=== PATIENT | female | born 1985 | race Caucasian/White ===

== ENCOUNTER → 2017-12-20 16:02 | Outpatient (REF) | payer MEDICAID, SELFPAY ==
--- NOTE | 2017-12-20 15:00 | CER_PTH ---
PATIENT: NIMA BERKOWITZ LOC: [facility] U#:[id number] AGE/SX: 39/F ROOM: RE12/20/[address]: Lor Rivera : 1985 BED: DIS: SPEC #: [id number] RECD: 12/20/17 17:24 STATUS: SARTHAK REMike #: [id number] VENTURA: 12/20/17 15:[address]: Lor Rivera DEPT: Surgical Specimen RECD BY: Susanne Green ENTERED: 12/20/17 17:26 SP TYPE: CER OTHR DR: Iris Rabago Tissues: 1 - CERVICAL LEEP/LOOP Procedures: GROSS AND MICRO LEVEL 5 Comments: [id number]
== END ==
LOC: LBN 16:02
PROVIDERS: PCP Family Medicine; Visit Provider Obstetrics & Gynecology Gynecology
DX: N72 Inflammatory disease of cervix uteri (principal); Z87.410 Personal history of cervical dysplasia
CPT/HCPCS: 88307

== ENCOUNTER 2019-10-17 01:56 | Outpatient (CLI) | payer MEDICAID, SELFPAY ==
--- NOTE | 2019-10-17 | DI.US_ITS ---
EXAM: US OB 1ST TRIMESTER CLINICAL HISTORY: SURVEY, Z34.91, FAX TO [phone] TECHNIQUE: Ultrasound performed using standard protocol. COMPARISON: No exams were available for comparison FINDINGS: Ob ultrasound was performed utilizing 1st trimester protocol. There is single intrauterine gestation al sac with mean sac size measurements consistent with gestational age 5 weeks 3 days and EDC of 05/26. A yolk sac is visualized but no pole or cardiac activity is observed at this time. There is an apparent corpus luteum cyst left measuring roughly 1 cm in diameter right ovarian simple cyst measuring 17 millimeters in diameter noted.. No free fluid identified in pelvis. IMPRESSION: Five week 3 day intrauterine gestation by mean sac size measurements. Viability not confirmed at thi s time. Follow-up ultrasound suggested in 2 weeks. DATA REPOSITORY:
== END 2019-10-17 02:16 ==
PROVIDERS: PCP Family Medicine; Visit Provider Family Medicine
DX: Z34.91 Encounter for supervision of normal pregnancy, unspecified, first trimester (principal); Z3A.01 Less than 8 weeks gestation of pregnancy; N83.12 Corpus luteum cyst of left ovary; N83.291 Other ovarian cyst, right side
CPT/HCPCS: 76801

== ENCOUNTER 2020-05-13 13:51 | Inpatient (IN) | payer MEDICAID, SELFPAY ==
[2020-05-13] VITALS (15 sets, daily range): BP systolic 89–139; BP diastolic 45–78; PULSE 56–96; RESP 16–20; TEMP 35.5–36.8; O2SAT 99–100
--- NOTE | 2020-05-13 13:59 | W.PM.OBHPL1 ---
Date of service: 05/13/20 Time of Service: 14:00 Assessment and Plan Assessment and plan (1) History of delivery affecting : Status: Acute Assessment and plan: Patient had a previous section after 3 vaginal deliveries. She refuses attempted vaginal after section and declines trial of labor. She is in early labor today at 35 weeks and 2 days by early ultrasound with confirmatory last menstrual period. She does understand the risk, but alternatives of section including risk of infection, bleeding, injury to surrounding organs, risk of anesthesia, risk of thromboembolism and potential risk for recommend. She also understands that she is late and baby could have issues with both breathing, feeding, sugar control, jaundice. (2) : Status: Acute (3) Tobacco use: Status: Acute Assessment and plan: Patient states that she will no longer be smoking smoking as of today. OB-HPI Labor/Delivery History of Present Illness Reason for Visit: REPEAT C/S Chief Complaint: Uterine Contractions. FLOWER Calculator Estimated Delivery Date Method Current WG Current Estimate 06/15/20 Ultrasound #1 35w 2d Other Estimates 06/04/20 LMP (Certain) 36w 6d History of Present Narrative: Patient seen and personally for evaluation after having nonstress test in her primary care office today. She was having some abdominal pain and burning. Baby's been moving and active. At that nonstress test she did have a variable deceleration to the 90s covered nicely with moderate variability. She is seen here in the center for evaluation with contractions approximately 2 to 3 minutes and a category 1 heart rate tracing. Cervical exam previously was approximate 1 cm here on the center was 2 cm 80% with cervical change noted. Plan will be for repeat section today at 35 weeks and 2 days by early ultrasound consistent with last menstrual period. She does understand the risk benefits and alternatives occluding risk of infection, bleeding, injury to surrounding organs, potential need for hysterectomy. She will have preoperative antibiotics and DVT prophylaxis. Pediatrics will be involved in light of fact that patient is late she does understand the possibility for respiratory distress, poor feeding, hyperbilirubinemia. Review of Systems All systems reviewed & are unremarkable except as noted in HPI and below Constitutional Constitutional: Reports as per HPI, Denies fever(s), Denies night sweats and Denies weight loss Eyes Eyes: Reports system reviewed and no additional complaints, except as documented Cardiovascular Cardiovascular: Reports system reviewed and no additional complaints, except as documented Respiratory Respiratory: Reports system reviewed and no additional complaints, except as documented Gastrointestinal Gastrointestinal: Reports system reviewed and no additional complaints, except as documented Genitourinary Genitourinary: Reports system reviewed and no additional complaints, except as documented and Reports pelvic pain Neurologic Neurologic: Reports system reviewed and no additional complaints, except as documented Endocrine Endocrine: Reports system reviewed and no additional complaints, except as documented Allergic/Immunologic Allergic/Immunologic: Reports system reviewed and no additional complaints, except as documented PFSH Medical History Abnormal Pap smear of cervix 2016. HGIL. Neg ECC. Rx with cryo. 2017. HGSIL with . Colpo inconclusive. 11/2017 Colop bx Contraception Declines any hormonal contraception. Declines tubal sterilization or LARC. States she does OK without. FHx: hemochromatosis Pt is a gene carrier. Pt's father has hemochromotosis. 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 Need clarification: does she need prophylaxis in 3rd trimester. History of alcohol abuse History of depression FLOWER 06/15/20 by 1st trimester u/s. care at [facility]. PTSD (post-traumatic stress disorder) Tobacco abuse Surgical History section (03/22/17) Arrest dilation and NRFHR. Che Huang. FH/SG History of delivery affecting Declines JOSR unless has advanced cervical dilation on arrival at [facility]. Family History Mother Hyperlipidemia Father No problems noted. Social History Smoking/Tobacco Use Status: Current every day Smoking risk assessment performed?: Yes Do you feel safe in your relationship?: Yes History History 5 Para 4 Hx # Term Pregnancies Multiple births Hx # Pregnancies Ectopic pregnancies AB induced Hx Number of Living Children AB spontaneous Past Pregnancies Del. Date GA/Weeks # Outcome Route Wgt Sex Labor Lgth Anesthesia Location Prov Complic Unknown 40 No Successful vaginal 6 lb 13 oz Female 5 Unknown 37 No Successful vaginal 5 lb 4 oz Male 14 Unknown 39 No Successful vaginal 7 lb 6 oz Male 12 Unknown 38 No Successful 7 lb 1 oz Male 36 Delivery Date: 2007 Lor Rivera Delivery Date: 2009 Lor Rivera Delivery Date: 2015 Lor Rivera Delivery Date: 2016. HR tracing non-reassuring 7cm. Lor Rivera Meds Home Medications and Allergies Allergies Allergy/AdvReac Type Severity Reaction Status Date / Time azithromycin Allergy Intermediate Nausea Unverified 03/20/17 21:59 Exam Physical Exam Vital signs: Pulse BP 96 H 135/73 05/13/20 13:45 05/13/20 13:45 Detailed Labor and Delivery Exam Perla Score: Cervical Points Exam 0 1 2 3 Dilation Closed 1-2cm 3-4 cm 5-6cm Effacement 0-30% 40-50% 60-70% 80% Consistency Firm Medium Soft Station -3 -2 -1,0 +1,+2 Position Posterior Mid Anterior Fetus A Heart Rate Baseline: 140 Monitor Accelerations: 15 X 15 Monitor Decelerations: None Variability: Moderate (6-25 BPM) Presentation: Cephalic Categories: Category I Est. Weight: 6 lb Est. Weight: 6 HEENT Exam HEENT Exam: Normal Neck Exam Neck Exam: Normal Respiratory Exam Respiratory Exam: Normal Cardiovascular Exam Cardiovascular Exam: Normal Abdominal Exam Abdominal Exam: Normal Detailed Exam Patient deferred: external exam External: Present normal urethra appearance Detailed Extremities Exam Extremities: Absent cyanosis, clubbing, edema, calf tenderness and Gem's sign Skin Exam Skin Exam: Normal Neurological Exam Neurological Exam: Normal Additional findings Additional findings: Cervix is 2 cm, 80%, soft, posterior, 0 station Risk Assessment Risk for Shoulder Dystocia Historical/Initial OB: NEGATIVE FOR: Pelvic Abnormality, Pre- BMI>30, Previous Shoulder Dystocia or Previous Macrosomia 40 Weeks: NEGATIVE FOR: EFW> 4500 gms, Maternal Weight Gain >40lb or Post Dates Increased Risk?: No Delivery Plan @ 40 wks: section Risk for Pre-Eclampsia Yes, if one or more: NEGATIVE FOR: Hx Pre-E/Gest HTN, Chronic HTN, Multiple Gestation, Pre-gestational DM, Renal Disease, Systemic Lupus or APA Syndrome Yes, if 2 or more: POSITIVE FOR: Previous IUGR; NEGATIVE FOR: Nulliparity, Age>= 35 yrs, >10yr btwn pregnancies, BMI>30, ethinicty or Mother/Sister w/ Pre-E Risk for Post- Hemorrhage Initial: POSITIVE FOR: Grand Multiparity; NEGATIVE FOR: Multiple Gestation, Previous PPH or Known Clotting Deficiency Date/Initials: KJ Risks Reviewed Risks Reviewed Upon Admission: Yes
[2020-05-13] MEDS: Sodium Citrate 30 ML CUP PO (14:35)
[2020-05-13] MEDS: ceFAZolin 2 GM/50 ML BAG IVPB (14:38)
[2020-05-13] MEDS: Normal Saline Flush 10 ML SYR IVP ×2 (14:39→19:29)
[2020-05-13] MEDS: Lactated Ringers 1,000 ML 200 ML IV ×2 (14:40→16:51)
[2020-05-13 14:41] LABS: HCT 35.2 % (36.0-46.0); HGB 12.7 g/dL (11.2-15.7); MCH 32.2 pg (27.0-33.0); MCHC 36.1 % (32.0-36.0); MCV 89.3 fL (80-95); MPV 9.2 fL (8.0-11.0); Platelet Count 316 10^3/uL (130-400); RBC 3.94 10^6/uL (3.93-5.22); RDW 12.1 % (11.7-14.6); RDW-SD 39.3 fL; WBC 14.06 10^3/uL (4.4-10.8)
[2020-05-13] MEDS: AZITHROMYCIN 500 MG in Normal Saline 250 ML 250 MG IVPB (15:26)
[2020-05-13] MEDS: Bupivacaine 0.25% Pres-Free 30 ML VIAL (16:01)
--- NOTE | 2020-05-13 16:24 | W.PM.OBCSECT ---
Date of service: 05/13/20 Time of Service: 16:24 Operative Note Operative Note Delivery Method: Unscheduled Category: Urgent DATE OF PROCEDURE: 05/13/20 PRE-OP DIAGNOSES: at 35-2/7 weeks, prior , declines labor, active labor POST-OP DIAGNOSES: same PROCEDURE: Repeat low transverse section SURGEON: Lindsey Khalil Machine Cell Tuber: Catherine Hays Anesthesia: local and spinal Estimated blood loss (mL): 600 Pathology: none sent Complications: None Patient was transported to: floor Patient's condition: stable Indications: at 35-2/7 weeks, active labor, prior section, declined trial of labor Findings: Delivery of a viable male infant. Normal tubes, ovaries, uterus Procedure Description: Patient is a 34-year-old female who has had care with primary care at [facility]. She had previously 3 vaginal deliveries followed by a section. She was counseled on options of trial of labor versus repeat section. She opted for section. She was sent to the center today after having increasing abdominal pain and noted to have a deceleration on nonstress testing at the office. She was sent for further evaluation. Upon her arrival to the center she was paula approximately every 3 minutes which were uncomfortable. She had made cervical change from 1 cm in the office to 2 cm and 80% on the floor. She had reassuring maternal status with a category 1 heart rate tracing at that point. The risks, benefits, alternatives of section including risk of infection, bleeding, injury to surrounding organs, risk of thromboembolism, risk of anesthesia, potential risk for hysterectomy were explained to the patient in full informed consent was obtained. She was taken the operating suite with an IV running where she placed in the seated position and spinal anesthesia administered tested and found to be adequate. She was placed in the dorsal supine position with leftward tilt and prepped and draped in usual sterile fashion. Sun catheter had been inserted for continuous bladder drainage. Half percent Marcaine with Exparel were infiltrated into her previous incisional area. A Pfannenstiel skin was made with a scalpel and extended to the fascia. Fascial incision was nicked in the midline and fascial incision extended laterally. The fascia was then split in the rectus muscles rectus muscle split in the midline and the peritoneum identified tented up and entered sharply. The peritoneal incision was then extended superiorly and inferiorly and the bladder blade was inserted. The vesicouterine peritoneum was identified tented up and with meticulous sharp dissection the bladder flap was created. Bladder blade was reinserted and a low transverse uterine incision was made with the scalpel and extended bluntly laterally. Membranes were ruptured for clear fluid. vertex was found to be in the occiput transverse position with the left hand near to the left cheek. The vertex was delivered atraumatically. Shoulders followed with ease. Three-vessel cord was noted clamped x2 and cut and the infant handed off to the waiting pediatric team. At this point cord blood gases cord blood sample were both obtained and the placenta was manually expressed from the uterus. The uterus was then exteriorized and cleared of all clot and debris. Uterine incision was closed using 0 Monocryl suture in a 2 layer closure first running locked, second layer imbricated. The incision was found to be hemostatic and uterus was returned to the abdomen. The abdomen was then irrigated copious amounts of normal saline and uterine incision inspected found to be hemostatic. At this point the fascial incision was closed using 0 Vicryl suture in a running fashion subcutaneous tissue. Copious amounts of normal saline subcu space was closed with 3-0 Vicryl suture in a simple interrupted fashion and the skin edge reapproximated with 4-0 Monocryl in a subcuticular fashion. Steri-Strips were placed as was a sterile dressing. At the completion of procedure patient had Sun catheter draining clear yellow urine. Findings: Delivered viable male weight and Apgars to follow. Normal tubes ovaries and uterus EBL: 600 cc Complications: None apparent Fluid: 1 L crystalloid per anesthesia
[2020-05-13] MEDS: Oxytocin/Normal Saline 30 UNITS/500 ML BAG 95 UNITS IV (16:50)
[2020-05-13] MEDS: NALBUPHINE 5 MG in Normal Saline 50 ML 100 MG IVPB (19:27)
[2020-05-13] MEDS: Ketorolac 30 MG/ML VIAL IVP (19:30)
--- NOTE | 2020-05-13 20:05 | OBPPV_ITS ---
Date of service: 05/13/20 Time of Service: 20:05 Assessment and Plan Assessment and plan (1) Tobacco use: Status: Acute (2) delivery delivered: Status: Acute Assessment and plan: Doing well post csection today for labor with planned c section. Being transferred to [facility] to be with baby who needs higher level of care for RDS. Subjective Subjective Patient comments: No complaints, Pain well controlled and Tolerating diet Narrative: Mom is doing well with some nausea and itching post . Vital signs stable. Spinal wearing off slowly. However, baby is being transferred to [facility] due to RDS and we will be transporting mom as well to be with her baby. Spoke with Dr Vallejo at [facility] who accepted the transfer. Mom is intending to breastfeed and has been expressing colostrum for baby as well as pumping. Exam Physical Exam Vital signs: Temp Pulse Resp BP Pulse Ox 36.6 C 82 18 139/69 100 05/13/20 18:30 05/13/20 19:54 05/13/20 18:18 05/13/20 19:54 05/13/20 17:50 Constitutional Constitutional: no acute distress Fundal Exam Fundus: Below Umbilicus (at umbilicus) and Firm Results Hemoglobin/Hematocrit: Hgb 12.7 g/dL (11.2-15.7) 05/13/20 14:30 Hct 35.2 % (36.0-46.0) L 05/13/20 14:30 Abnormal Lab Findings: Abnormal Labs 05/13/20 14:30 WBC 14.06 H Hct 35.2 L MCHC 36.1 H
[2020-05-14 01:01] LABS: COVID-19 RT-PCR UVMMC Result Negative (Negative)
== END 2020-05-13 21:35 | disposition short-term general hospital (02) | DRG 788 ==
LOC: BCD 13:55 → OBS 13:56
PROVIDERS: Admitting Provider Obstetrics & Gynecology; PCP Family Medicine; Visit Provider Obstetrics & Gynecology
PROC: 10D00Z1 Extraction of Products of Conception, Low, Open Approach (ICD-10-PCS; CPT 59514; principal; 2020-05-13 14:30)
DX: O60.14X0 Preterm labor third trimester with preterm delivery third trimester, not applicable or unspecified (principal); O99.334 Smoking (tobacco) complicating childbirth; Z37.0 Single live birth; O34.211 Maternal care for low transverse scar from previous cesarean delivery; Z3A.35 35 weeks gestation of pregnancy; F17.210 Nicotine dependence, cigarettes, uncomplicated; N85.8 Other specified noninflammatory disorders of uterus
CPT/HCPCS: 59514; 85027; 86850; 86900; 86901; U0003; J0131; J0456; J0690; J1100; J1885; J2405; J2590; J3010; J3490